=== PATIENT | female | born 1985 | race Caucasian/White ===

== ENCOUNTER 2021-03-23 04:50 | Emergency (ER) | payer MEDICAID, SELFPAY ==
[2021-03-23 04:58] VITALS: BP 141/88; PULSE 65; RESP 16; TEMP 36.6; O2SAT 100
[2021-03-23 05:35] LABS: Add Urine Microscopic? YES; Appearance Urine Cloudy (Clear); Bilirubin Urine Negative (Negative); Blood Urine Negative (Negative); Color Urine Yellow (Yellow); Glucose Urine UA Negative (Negative); Ketones Urine Negative (Negative); Leukocyte Esterase Ur 3+ LEU/UL (Negative); Nitrate Urine Negative (Negative); Protein Urine Negative (Negative); Specific Grav Ur 1.018 (1.001-1.035); Squamous Epithelial Cell Urine Few /hpf (Few); Urobilinogen Urine Negative mg/dL (<2.0)
--- NOTE | 2021-03-23 05:46 | ED.GENADULT ---
HPI - General Adult General Chief complaint: Urogenital-Female Stated complaint: burning with urination-pain Time Seen by Provider: 03/23/21 05:00 History of Present Illness HPI narrative: Patient 35-year-old female presents emergency department with chief complaint of dysuria. The patient reports that this evening she woke up and has had burning with urination. Patient states that a little bit of pressure in her back reports that she had no vaginal bleeding or vaginal discharge. Patient reports her last period was last month. The patient does report that she has been trying to get . Related Data Allergies Allergy/AdvReac Type Severity Reaction Status Date / Time No Known Allergies Allergy Verified 03/23/21 05:06 Review of Systems Review of Systems: Narrative: A 10 system review of systems was completed on the patient and is negative except for what is stated in the HPI. Nursing and ancillary documentation was reviewed. Exam Narrative: Exam Narrative: GENERAL: Well-appearing, well-nourished, and in no acute distress. HEAD: Normocephalic, atraumatic. EYES: PERRLA and EOMI. ENT: Nares clear, no rhinorrhea or epistaxis. Mucous membranes moist. NECK: Supple. CHEST: Clear to auscultation. No respiratory distress. HEART: Regular rate and rhythm. No murmur heard. Normal peripheral pulses. ABDOMEN: Soft, nontender, nondistended, normal active bowel sounds. EXTREMITIES: Normal range of motion. No edema. SKIN: Warm, dry, no rash. NEURO: No focal deficits. Alert and oriented x3. PSYCH: Normal mood and affect. Course Vital Signs Vital signs: Vital Signs Temperature 36.6 C 03/23/21 04:58 Pulse Rate 65 03/23/21 04:58 Respiratory Rate 16 03/23/21 04:58 Blood Pressure 141/88 H 03/23/21 04:58 Pulse Oximetry 100 03/23/21 04:58 Temperature 36.6 C 03/23/21 04:58 Pulse Rate 65 03/23/21 04:58 Respiratory Rate 16 03/23/21 04:58 Blood Pressure 141/88 H 03/23/21 04:58 Pulse Oximetry 100 03/23/21 04:58 Medical Decision Making Vital Signs Vital Signs: Vital Signs Temperature 36.6 C 03/23/21 04:58 Pulse Rate 65 03/23/21 04:58 Respiratory Rate 16 03/23/21 04:58 Blood Pressure 141/88 H 03/23/21 04:58 Pulse Oximetry 100 03/23/21 04:58 Temperature 36.6 C 03/23/21 04:58 Pulse Rate 65 03/23/21 04:58 Respiratory Rate 16 03/23/21 04:58 Blood Pressure 141/88 H 03/23/21 04:58 Pulse Oximetry 100 03/23/21 04:58 Lab Data Labs: Lab Results 03/23/21 Range/Units 04:58 Urine Color Yellow (Yellow) Urine Appearance Cloudy H (Clear) Urine pH 6.0 (5.0-9.0) Ur Specific [place] 1.018 (1.001-1.035) Urine Protein Negative (Negative) mg/dL Urine Glucose (UA) Negative (Negative) mg/dL Urine Ketones Negative (Negative) mg/dL Ur Blood (Man) Negative (Negative) Urine Nitrate Negative (Negative) Urine Bilirubin Negative (Negative) Urine Urobilinogen Negative (<2.0) mg/dL Leukocyte Esterase Rfl 3+ H (Negative) GISSELLE/UL Urine RBC 6-10 H (0-2) /hpf Urine WBC 4-6 H /hpf Ur Squamous Epith Cells Few (Few) /hpf UCG Bedside Result Positive Reference Range: Negative Urine Characteristics Clear,Cloudy Discharge Plan Discharge Clinical Impression: UTI (urinary tract infection) Qualifiers: Urinary tract infection type: site unspecified Hematuria presence: without hematuria Qualified Code(s): N39.0 - Urinary tract infection, site not specified Qualifiers: Weeks of gestation: unspecified Qualified Code(s): Z34.90 - Encounter for supervision of normal , unspecified, unspecified trimester Patient Disposition: Home, Self-Care Condition: Stable Instructions: Antibiotic Form, (ED), Urinary Tract Infection in Women (ED) Prescriptions: New nitrofurantoin monohyd/m-cryst [
== END 2021-03-23 05:58 | disposition home or self-care (01) ==
PROVIDERS: Emergency Provider Emergency Medicine
DX: O23.40 Unspecified infection of urinary tract in pregnancy, unspecified trimester (principal)
CPT/HCPCS: 81001; 81025; 99283

== ENCOUNTER 2021-08-01 19:11 | Emergency (ER) | payer OTHER, SELFPAY ==
[2021-08-01 19:29] VITALS: BP 142/80; PULSE 80; RESP 16; TEMP 36.4; O2SAT 100
--- NOTE | 2021-08-01 21:59 | PC.NURSE ---
called pt to room with no answer x2
== END 2021-08-02 04:23 | disposition left against medical advice (07) ==
DX: M25.562 Pain in left knee (principal)
CPT/HCPCS: 99199

== ENCOUNTER 2021-08-26 18:00 | Observation (INO) | payer OTHER, SELFPAY ==
[2021-08-26 18:08] VITALS: BP 141/83; PULSE 75; RESP 16; TEMP 35.9; O2SAT 100
--- NOTE | 2021-08-26 18:31 | ED.FALL ---
HPI - Fall General Chief Complaint: Fall Stated Complaint: 29 wks , fall Time Seen by Provider: 08/26/21 18:20 Source: patient Mode of arrival: ambulatory Limitations: no limitations History of Present Illness HPI Narrative: This is a 35 year old , 29 weeks , that presents to the ER for a ground level fall today. Reports she slipped and fell and landed in the splits. Denies hitting her head or loss of consciousness. Denies any certain injuries after the fall. She has felt baby move. Her OB is Dr. Bhandari. Denies pelvic cramping or vaginal bleeding. Related Data Home Medications Medication Instructions Recorded Confirmed vit 14-iron fum-folic tablet 08/26/21 [ Multivit with Iron] Allergies Allergy/AdvReac Type Severity Reaction Status Date / Time No Known Allergies Allergy Verified 08/26/21 18:20 Review of Systems Review of Systems: CONSTITUTIONAL: Denies fever GASTROINTESTINAL: Denies abdominal pain MUSCULOSKELETAL: Reports myalgia. All systems reviewed & are unremarkable except as noted in HPI and below PMFSH Past Medical History Medical History (Updated 08/26/21 @ 19:08 by Justina Campbell PA-C) No active medical problems Social History Social History (Updated 08/26/21 @ 18:40 by Justina Campbell PA-C) Substance use: never Exam Narrative: GENERAL: Well-appearing, well-nourished, and in no acute distress. HEAD: Normocephalic, atraumatic. EYES: EOMI. CHEST: Clear to auscultation. No respiratory distress. No wheezes rales or rhonchi HEART: Regular rate and rhythm. No murmur heard. Normal peripheral pulses. ABDOMEN: Soft, nontender, nondistended, normal active bowel sounds. EXTREMITIES: Normal range of motion. No edema. SKIN: Warm, dry, no rash. NEURO: No focal deficits. Alert and oriented x3. PSYCH: Normal mood and affect Course Vital Signs Vital signs: Vital Signs Temperature 96.6 F L 08/26/21 18:08 Pulse Rate 75 08/26/21 18:08 Respiratory Rate 16 08/26/21 18:08 Blood Pressure 141/83 H 08/26/21 18:08 Pulse Oximetry 100 08/26/21 18:08 Temperature 96.6 F L 08/26/21 18:08 Pulse Rate 75 10/15/21 18:08 Respiratory Rate 16 08/26/21 18:08 Blood Pressure 141/83 H 08/26/21 18:08 Pulse Oximetry 100 08/26/21 18:08 Procedures Other Procedure Procedure 1: Other Procedure: Bedside ultrasound performed which did show good movement and appropriate cardiac activity MDM - Fall MDM Narrative Medical decision making narrative: Patient presents to the emergency department after a ground-level fall today. Patient slipped and fell. She is 29 weeks . Her OB is Dr. Bhandari. Denies any certain injury after the fall. No injury to the abdomen. She is feeling the baby move. Baby noted to have heart tones in the 140s. Bedside ultrasound performed which did show good movement. Spoke with Dr. Tomas about patient work-up who would like patient to be sent to OB for further monitoring with nonstress test Critical Care Time Critical Care Time Critical Care Time: No Discharge Plan Discharge Clinical Impression: Fall from ground level, Third trimester Patient Disposition: Still a Patient Condition: Stable Prescriptions: No Action Multivit with Iron 29 mg iron- 1 mg Tablet,Chewable RF: 0 Follow-up/Referrals: Rusty Bhandari MD [Primary Care Provider] -
--- NOTE | 2021-08-26 19:08 | PC.NURSE ---
Pt being moved to OB at this time. Pt taken to OB in wheelchair by RN. Upright and alert. VSS.
[2021-08-26 19:31] VITALS: BP 122/77; PULSE 72
[2021-08-26 20:00] VITALS: BMI 40.3
--- NOTE | 2021-08-26 20:01 | OBADM ---
This patient, Annabelle Rodriguez, admitted to the OB room OB Post 117 for observation. Patient/family oriented to hospital policies and general routines including ID bracelet, bed and alarms, visiting hours, pain management, procedures, bathroom and other care routines, personal items, smoking policy, room service/diet, and visiting hours. Patient/Family are encouraged to report perceived risks to care and to ask questions if they do not understand what they are told or what they should do.
--- NOTE | 2021-09-02 07:43 | PM.OBTRLD ---
OB - Triage/Final Diagnosis Visit Information Comments/Additional reasons for admission: I have assessed the risk for this patient, Annabelle Rodriguez, and determined that she would benefit from observation care. Final Diagnosis (1) Fall from ground level: Code(s): W18.30XA - Fall on same level, unspecified, initial encounter Status: Acute (2) Third trimester : Code(s): Z34.93 - Encounter for supervision of normal , unspecified, third trimester Status: Acute
== END 2021-08-26 20:20 | disposition home or self-care (01) ==
LOC: ANHED 19:12 → ANHOBPP 19:33
PROVIDERS: Admitting Provider Obstetrics & Gynecology; Emergency Provider Emergency Medicine; PCP Obstetrics & Gynecology; Visit Provider Obstetrics & Gynecology
DX: O26.893 Other specified pregnancy related conditions, third trimester (principal); W19.XXXA Unspecified fall, initial encounter; Z3A.29 29 weeks gestation of pregnancy
CPT/HCPCS: 59025; 99285; G0378

== ENCOUNTER 2021-10-07 11:32 | Outpatient (RCR) | payer OTHER, SELFPAY ==
[2021-10-07 12:01] VITALS: BP 134/73; PULSE 79
== END 2021-11-24 09:40 | disposition home or self-care (01) ==
LOC: ANHOBOP 11:32
PROVIDERS: Visit Provider Obstetrics & Gynecology
DX: O24.419 Gestational diabetes mellitus in pregnancy, unspecified control (principal); Z3A.35 35 weeks gestation of pregnancy
CPT/HCPCS: 59025

== ENCOUNTER 2021-10-20 16:10 | Inpatient (IN) | payer OTHER, SELFPAY ==
[2021-10-20] VITALS (13 sets, daily range): BP systolic 112–139; BP diastolic 63–93; PULSE 65–76; RESP 20; TEMP 36.6–37.2
--- NOTE | 2021-10-20 16:45 | LDADM ---
This patient, Annabelle Rodriguez, was admitted to Labor/Delivery/Recovery 107 on 10/20/21 at 16:10. Plans for labor, pain management and were discussed with patient. Patient/family oriented to hospital policies and general routines including ID bracelet, bed and alarms, visiting hours, pain management, procedures, bathroom and other care routines, personal items, smoking policy, room service/diet and guest tray routines, security routines, and visiting hours. Patient/Family are encouraged to report perceived risks to care and to ask questions if they do not understand what they are told or what they should do. See OBIX for further documentation.
[2021-10-20 16:48] LABS: Basophils Percent Auto 0.3 % (0.2-1.2); Eosinophils Absolute Auto 0.1 K/mm3 (0-0.3); Eosinophils Percent Auto 0.6 % (0-4.4); Hematocrit 35.4 % (37.0-47.0); Hemoglobin 11.8 g/dL (12.0-15.0); Immature Granulocyte Absolute 0.02 K/mm3 (0.00-0.031); Immature Granulocyte Percent A 0.2 % (0-0.5); Lymphocytes Absolute Auto 1.75 K/mm3 (0.9-3.2); Lymphocytes Percent Auto 19.7 % (18.3-44.2); Mean Corpuscular HGB Conc 33.3 g/dl (32-36); Mean Corpuscular Hemoglobin 30.2 pg (26-34); Mean Corpuscular Volume 90.5 fl (80-100); Mean Platelet Volume 11.9 fl (7.4-10.4); Monocytes Absolute Auto 0.7 K/mm3 (0.1-0.6); Monocytes Percent Auto 8.1 % (2.6-8.5); Neutrophils Absolute Auto 6.3 K/mm3 (1.3-6.7); Neutrophils Percent Auto 71.1 % (45.5-73.1); Platelet Count Result 186 k/mm3 (150-375); Red Blood Count 3.91 M/mm3 (4.2-5.4); Red Cell Distribution Width 13.4 % (11.5-14.5); White Blood Count 8.9 K/mm3 (4.5-10.0)
[2021-10-20] MEDS: DINOPROSTONE 10 MG VAG INSERT VAGINAL (16:59)
[2021-10-20 17:01] LABS: Alanine Aminotransferase 13 U/L (4-35); Albumin Level 3.5 g/dL (3.5-5.1); Alkaline Phosphatase 155 U/L (38-126); Anion Gap 5 mmol/L (8-16); Aspartate Amino Transferase 20 U/L (14-36); Bilirubin,Total 0.3 mg/dL (0.2-1.3); Blood Urea Nitrogen 8 mg/dL (7-17); Carbon Dioxide 22 mmol/L (22-30); Chloride 103 mmol/L (98-107); Estimated Glomerular Filt Rate > 60; Glucose 94 mg/dL (65-110); Potassium 3.9 mmol/L (3.4-5.0); Sodium 130 mmol/L (137-145); Uric Acid 4.2 mg/dL (2.5-7.5)
[2021-10-20 18:11] LABS: Amphetamine Screen Urine Negative (Negative); Barbiturate Screen Urine Negative (Negative); Benzodiazepines Screen Urine Negative (Negative); Cannabinoid Screen Urine Positive (Negative); Cocaine Screen Urine Negative (Negative); Methadone Screen Urine Negative (Negative); Opiate Screen Urine Negative (Negative); Phencyclidine Screen Urine Negative (Negative)
[2021-10-21] VITALS (264 sets, daily range): BP systolic 100–163; BP diastolic 46–112; PULSE 36–187; RESP 18; TEMP 36.2–37.3; O2SAT 94–100; BMI 41.5
[2021-10-21 00:15] LABS: Glucose Point of Care 82 mg/dl (65-105)
[2021-10-21 04:52] LABS: Glucose Point of Care 80 mg/dl (65-105)
[2021-10-21] MEDS: LACTATED RINGERS 1,000 ML 125 ML IV CONT (06:33)
[2021-10-21] MEDS: OXYTOCIN 30 UNITS/NS 500 ML 30 UNITS/500 ML BAG 6 UNITS IV CONT (06:34)
--- NOTE | 2021-10-21 07:28 | WPDOBADMIT ---
Obstetrics - Admit Note Admission Note: record reviewed. No pertinent additions to the history and/or any subsequent changes in the physical findings that are not consistent with the expected course of the were found. MIL for GHTN and GDMA-2, hx +THC in , SVE /-3 Additions to the history and/or subsequent changes in the physical findings follow. None.
[2021-10-21 08:36] LABS: Glucose Point of Care 85 mg/dl (65-105)
[2021-10-21] MEDS: LACTATED RINGERS 1,000 ML 999 ML IV CONT ×3 (09:46→22:21)
[2021-10-21] MEDS: ONDANSETRON INJ 4 MG/2 ML VIAL IV PUSH (09:50)
--- NOTE | 2021-10-21 10:26 | WPDANESEPP ---
Anes - Eval Pre Procedure Procedure: Labor Epidural Date/Time: 10/21/21 10:26 Surgeon: Elisabet Preop Diagnosis: Labor pain Pre Op Diagnosis: iol Patient Data Age: 36 Gender: F Height: Weight: Last Vital Signs Temp 36.6 C 10/21/21 07:30 Pulse 68 10/21/21 10:24 Resp 20 10/20/21 16:40 BP 124/65 10/21/21 10:24 Pulse Ox 100 10/21/21 10:23 Allergies Allergy/AdvReac Type Severity Reaction Status Date / Time No Known Allergies Allergy Verified 08/26/21 18:20 Home Medications Medication Instructions Recorded Confirmed Type PNV cmb#95-ferrous fumarate-FA 1 tablet PO DAILY 10/14/21 10/20/21 History [] insulin NPH and regular human 20 unit SUBCUT HS 10/14/21 10/20/21 History [Humulin 70/30 Insulin Pen] Laboratory Tests 10/20/21 10/20/21 10/20/21 16:38 16:38 16:38 WBC 8.9 K/mm3 K/mm3 (4.5-10.0) RBC 3.91 M/mm3 L M/mm3 (4.2-5.4) Hgb 11.8 g/dL L g/dL (12.0-15.0) Hct 35.4 % L % (37.0-47.0) MCV 90.5 fl fl (80-100) MCH 30.2 pg pg (26-34) MCHC 33.3 g/dl g/dl (32-36) RDW 13.4 % % (11.5-14.5) Plt Count 186 k/mm3 k/mm3 (150-375) MPV 11.9 fl H fl (7.4-10.4) Immature Gran % (Auto) 0.2 % % (0-0.5) Neut % (Auto) 71.1 % % (45.5-73.1) Lymph % (Auto) 19.7 % % (18.3-44.2) [place] % (Auto) 8.1 % % (2.6-8.5) Eos % (Auto) 0.6 % % (0-4.4) Baso % (Auto) 0.3 % % (0.2-1.2) Lymph # (Auto) 1.75 K/mm3 K/mm3 (0.9-3.2) [place] # (Auto) 0.7 K/mm3 H K/mm3 (0.1-0.6) Eos # (Auto) 0.1 K/mm3 K/mm3 (0-0.3) Baso # (Auto) 0.0 K/mm3 K/mm3 (0.0-0.1) Abs Immat Gran (auto) 0.02 K/mm3 K/mm3 (0.00-0.031) Absolute Neuts (auto) 6.3 K/mm3 K/mm3 (1.3-6.7) Absolute Nucleated RBC 0.0 K/mm3 K/mm3 (0.0-0.012) Nucleated RBC % 0.0 % % (0.0-0.2) Sodium Potassium Chloride Carbon Dioxide Anion Gap BUN Creatinine Estim Creat Clear Calc Estimated GFR Glucose POC Capillary Glucose Uric Acid Cancelled Calcium Total Bilirubin AST ALT Alkaline Phosphatase Total Protein Albumin Urine Opiates Screen Urine Methadone Screen Ur Barbiturates Screen Ur Phencyclidine Scrn Ur Amphetamine Screen U Benzodiazepines Scrn Urine Cocaine Screen U Cannabinoids Screen RPR Pending Blood Type Antibody Screen 10/20/21 10/20/21 10/20/21 16:38 16:38 17:27 WBC RBC Hgb Hct MCV MCH MCHC RDW Plt Count MPV Immature Gran % (Auto) Neut % (Auto) Lymph % (Auto) [place] % (Auto) Eos % (Auto) Baso % (Auto) Lymph # (Auto) [place] # (Auto) Eos # (Auto) Baso # (Auto) Abs Immat Gran (auto) Absolute Neuts (auto) Absolute Nucleated RBC Nucleated RBC % Sodium 130 mmol/L L mmol/L (137-145) Potassium 3.9 mmol/L mmol/L (3.4-5.0) Chloride 103 mmol/L mmol/L (98-107) Carbon Dioxide 22 mmol/L mmol/L (22-30) Anion Gap 5 mmol/L L mmol/L (8-16) BUN 8 mg/dL mg/dL (7-17) Creatinine 0.60 mg/dL L mg/dL (0.7-1.0) Estim Creat Clear Calc Not Reportable Estimated GFR > 60 (59 - ) Glucose 94 mg/dL mg/dL (65-110) POC Capillary Glucose Uri
[2021-10-21 12:37] LABS: Rapid Plasma Reagin Non-Reactive (NonReactive)
[2021-10-21 12:58] LABS: Glucose Point of Care 74 mg/dl (65-105)
[2021-10-21 16:45] LABS: Glucose Point of Care 65 mg/dl (65-105)
[2021-10-21 20:30] LABS: Glucose Point of Care 56 mg/dl (65-105)
[2021-10-21 21:04] LABS: Glucose Point of Care 74 mg/dl (65-105)
[2021-10-22] VITALS (129 sets, daily range): BP systolic 89–152; BP diastolic 46–115; PULSE 57–236; RESP 18–20; TEMP 36.3–37.4; O2SAT 89–100
[2021-10-22 01:30] LABS: Glucose Point of Care 77 mg/dl (65-105)
[2021-10-22] MEDS: ONDANSETRON INJ 4 MG/2 ML VIAL IV PUSH (02:11)
[2021-10-22 04:57] LABS: Glucose Point of Care 91 mg/dl (65-105)
[2021-10-22] MEDS: AMPICILLIN 2 GM/NS 100 ML 2 GM/100 ML BAG IVPB (05:45)
[2021-10-22] MEDS: OXYTOCIN 30 UNITS/NS 500 ML 30 UNITS/500 ML BAG 6 UNITS IV CONT (05:51)
--- NOTE | 2021-10-22 07:41 | PM.OBPRVD ---
OB - Delivery Note Procedure Delivery date: 10/22/21 Procedure: events: Gestational Diabetes and Induced HTN Intrapartal events: None Induction method: per cervidil protocol Delivery monitor: external FHT, external uterine, internal FHT and internal uterine Route of delivery: Episiotomy description: None Laceration Description: None Quantitative Blood Loss (ml): 174 Anesthesia type: Epidural [place] Baby Date of : 10/22/21 Time of : 07:15 Weeks of gestation at delivery: 37 Infant gender: Male Weight (pounds): 6 Weight (ounces): 5 presentation: vertex position: Right Occiput Anterior Placenta delivery description: Spontaneous Narrative: Mother and baby in stable condition. Cord gasses collected and handed off to staff.
[2021-10-22] MEDS: OXYTOCIN 30 UNITS/NS 500 ML 30 UNITS/500 ML BAG 125 UNITS IV CONT (08:00)
[2021-10-22] MEDS: IBUPROFEN 600 MG TABLET PO ×2 (09:53→19:05)
--- NOTE | 2021-10-22 11:02 | OBPPTRN ---
Patient transferred to post room # 285 via wheelchair. Support person present. Oriented to unit, room, information board, rooming in, admission packet and security measures. Patient verbalizes understanding.
[2021-10-23 00:35] VITALS: BP 103/64; PULSE 59; RESP 18; TEMP 36.1
[2021-10-23 04:10] VITALS: BP 125/85; PULSE 58; RESP 18; TEMP 36.2
[2021-10-23 04:48] LABS: Hematocrit 30.2 % (37.0-47.0); Hemoglobin 10.2 g/dL (12.0-15.0)
[2021-10-23 08:20] VITALS: BP 107/66; PULSE 57; RESP 18; TEMP 36.1
[2021-10-23 08:29] LABS: Glucose Point of Care 75 mg/dl (65-105)
--- NOTE | 2021-10-23 10:06 | PM.OBPNVD ---
OB - PN: Subj Subjective Date/time seen: 10/23/21 10:06 Patient comments: no complaints baby status: doing well OB - PN: Obj Data Labs CBC & Chem 7: 10/23/21 04:11 10/20/21 16:38 Labs: Laboratory Results - last 24 hr 10/23/21 10/23/21 04:11 08:26 Hgb 10.2 L Hct 30.2 L POC Capillary Glucose 75 OB - PN A/P Plan day: 1 Plan: routine care Time Spent With Patient Time: Total time spent is greater than 50% in coordination of care (as documented) at patient's floor/unit and/or counseling patient: Time with patient: less than 15 minutes Review of Systems Review of Systems: All systems reviewed & are unremarkable except as noted in HPI and below Exam Narrative: Fundus firm and vaginal flow controlled. No lower ext redness, warmth, or edema. Negative homans. Const: General: comfortable Chest: Breast/axilla inspection: normal inspection of the breasts Resp: Effort & Inspection: normal respiratory effort Cardio: Rate: regular rate GI: GI Palp: Yes Soft to palpation Psych: Appearance: grossly normal Affect: normal affect Attitude: cooperative Thought content: Yes Normal thought content present Judgement: Good judgement present (Psych)
[2021-10-23] MEDS: IBUPROFEN 600 MG TABLET PO ×2 (10:29→16:06)
[2021-10-23] MEDS: MULTIVIT/MIN/PREN/FOL AC/IRON TABLET 1 TAB PO (10:29)
[2021-10-23 19:00] VITALS: BP 118/85; PULSE 65; RESP 18; TEMP 36.2
--- NOTE | 2021-10-23 20:32 | PC.NURSE ---
10/23/2021 at 1930 Patient viewed the discharge video Mother & Baby Care, The First Two Weeks . Patient was given the opportunity and encouraged to ask questions. Patient verbalized understanding of information shared and has been given the mother/baby guide for home reference.
--- NOTE | 2021-10-23 20:33 | PC.NURSE ---
10/23/2021 at 1850 as I entered mother's room I noticed one of the wall light sconces behind the patient's bed was not lit. I had him (the patient's significant other) pull the bulb out because it was too bright. I cautioned the patient that I don't want either of them getting hurt so please do not try and replace the bulb before they leave tomorrow...I continued and said that we will have maintenance replace the bulb. The patient and her significant other states understanding.
[2021-10-24] MEDS: IBUPROFEN 600 MG TABLET PO ×2 (00:26→07:40)
[2021-10-24] MEDS: MULTIVIT/MIN/PREN/FOL AC/IRON TABLET 1 TAB PO (07:40)
[2021-10-24 07:50] VITALS: BP 142/88; PULSE 64; RESP 18; TEMP 36.8; O2SAT 100
--- NOTE | 2021-10-24 08:03 | P.PNOB_ITS ---
OB - PN: Subj Subjective Date/time seen: 10/24/21 08:03 Patient comments: no complaints baby status: doing well OB - PN: Obj Data Labs CBC & Chem 7: 10/23/21 04:11 10/20/21 16:38 Labs: Laboratory Results - last 24 hr 10/23/21 08:26 POC Capillary Glucose 75 OB - PN A/P Plan day: 2 Plan: routine care and discharge home (F/U in 1 week for bp check) Time Spent With Patient Time: Total time spent is greater than 50% in coordination of care (as documente d) at patient's floor/unit and/or counseling patient: Time with patient: less than 15 minutes Review of Systems Review of Systems: All systems reviewed & are unremarkable except as noted in HPI and below Exam Narrative: Fundus firm and vaginal flow controlled. No lower ext redness, warmth, or edema. Negative homans. Denies h/a, v/d or e/p. Reflexes normal. Const: General: comfortable Chest: Breast/axilla inspection: normal inspection of the breasts Resp: Effort & Inspection: normal respiratory effort Cardio: Rate: regular rate GI: GI Palp: Yes Soft to palpation Psych: Appearance: grossly normal Affect: normal affect Attitude: cooperative Thought content: Yes Normal thought content present Judgement: Good judgement present (Psych)
--- NOTE | 2021-10-24 08:04 | PM.OBDSVD ---
DS: Admitting Diagnosis Discharge Date 10/24/21 Admitting Diagnosis Induction of Labor OB - DS: Summary OB Procedures : None OB Procedures Intrapartum: Spontaneous Vag Delivery OB Procedures: : None Time Spent with Patient Time attestation: Total time spent providing and/or coordinating discharge services: DS: Data Data Completed and Pending Labs on day of discharge: Labs from last 24 hours 10/23/21 08:26 POC Capillary Glucose 75 Discharge Plan Discharge Attending physician on discharge: Bela Melendez Discharging Clinician: Bela Melendez Patient Disposition: Home, Self-Care Activity: pelvic rest Diet: as tolerated Patient Instructions: Antibiotic Form Stand Alone Forms: General Discharge Information Follow-up/Referrals: Bela Melendez, MARTINAM [Certified Nurse Film Recordist] - Discharge Medications: Continued PNV cmb#95-ferrous fumarate-FA [] 28 mg iron- 800 mcg Tablet 1 tablet PO DAILY RF: 0 Discontinued Humulin 70/30 Insulin Pen 100 unit/mL (70-30) Insulin Pen 20 unit SUBCUT HS RF: 0 Date of admission: 10/20/21 16:10 Primary Care Provider: PHYSICIAN,DINING SERVICES DIRECTOR Admitting Provider: Rusty Bhandari Attending physician on admission: Rusty Bhandari Condition: Stable
--- NOTE | 2021-10-24 13:58 | PC.NURSE ---
1220 - Consulted with patient, reviewed infant feeding cues, frequencies, duration of feedings, feeding elimination flow sheet, and signs of adequate intake. Mom had just pumped her breast prior to assistance. Re-enforced feeding plan of putting to breast to effectively feed, supplementing with pumped colostrum/formula, then pumping breast for 10-15 min. Demonstrated stimulation techniques to wake for feeding. Assisted with infant to breast with a nipple shield. Reviewed positioning and alignment, holding breast and asymmetrical latch on. Infant was able to latch correctly with nipple shield. nursed eagerly, with steady draws. Reviewed signs of a correct latch, effective nursing and suck swallow ratio. was able to maintain latch without discomfort to mother using the nipple shield. Nipple care reviewed. Instructed mother to call out for RN assistance if she is unable to latch infant for feeding or she has discomfort with nursing. Pt states she is going home today. Reviewed feeding plan, answered questions and mom verbalizes understanding of the number to call for OP assistance for or ICP. Instructed feeding [ attempts with nipple shield or without, supplementing and pumping] should be initiated three hours from start of last feeding or if feeding cues are noted before. Mother voiced understanding of information shared. Mother states she feels confident to continue feeding plan at home. Reviewed transition to breast milk, signs of adequate intake, and engorgement/relief. Instructed to call ICP if intake/output less than required. Reviewed community resources on the [facility] website and in the Mom/Baby guide. Information on outpatient services provided. Mother has no further questions at this time.
[2021-10-26 11:36] VITALS: BP 129/78; PULSE 63; RESP 20; TEMP 37; O2SAT 100
== END 2021-10-24 13:48 | disposition home or self-care (01) | DRG 560 ==
LOC: ANHLDR 16:15 → ANHOB2 10-22 11:18
PROVIDERS: Advanced Practice Midwife; Admitting Provider Obstetrics & Gynecology; Visit Provider Obstetrics & Gynecology
DX: O13.4 Gestational [pregnancy-induced] hypertension without significant proteinuria, complicating childbirth (principal); O24.429 Gestational diabetes mellitus in childbirth, unspecified control; O71.82 Other specified trauma to perineum and vulva; Z3A.37 37 weeks gestation of pregnancy; Z37.0 Single live birth
CPT/HCPCS: 36415; 80053; 80307; 82948; 84550; 85014; 85018; 85025; 86592; 86850; 86900; 86901; 88307; A9270; J0290; J2405; J2590; J2795; J7120

== ENCOUNTER 2024-02-13 11:23 | Emergency (ER) | payer OTHER, SELFPAY ==
--- NOTE | ~2024-02-13 | XR_ITS ---
XR foot LT min 3V DATE: 02/13/2024 12:12 INDICATION: Pain, particularly at the heel TECHNIQUE: 4 views of left foot COMPARISON: None FINDINGS: Prominent plantar calcaneal enthesopathy without associated erosive change or periostitis. No fracture, dislocation, periosteal reaction or bone destruction or severe joint space narrowing, er osive change. IMPRESSION: Prominent plantar calcaneal enthesopathy Reviewed, dictated and finalized at location B.
--- NOTE | ~2024-02-13 | XR_ITS ---
XR ankle LT min 3V DATE: 02/13/2024 12:12 INDICATION: Pain. No injury. TECHNIQUE: 4 views of left ankle COMPARISON: None FINDINGS: Prominent plantar calcaneal enthesopathy. No fracture or dislocation of the ankle or disruption of the ankle mortise. No periosteal reaction or bone destruction. IMPRESSION: Prominent plantar calcaneal enthesopathy Reviewed, dictated and finalized at location B.
[2024-02-13 11:23] VITALS: BP 144/88; PULSE 66; RESP 16; TEMP 36.6; O2SAT 100
[2024-02-13] MEDS: KETOROLAC 30 MG/ML VIAL (*BKC) IM (11:51)
--- NOTE | 2024-02-13 12:25 | ED.GENADULT ---
HPI - General Adult General Chief complaint: Extremity Injury, Lower Stated complaint: left foot pain Time Seen by Provider: 02/13/24 11:28 History of Present Illness HPI narrative: Annabelle Rodriguez is a 38 y/o female who presents with reports of having pain to her left ankle/ foot for about a week without any known injury. Slight swelling noted to the lateral left ankle pain noted to the medial part/ arch of foot Pain is worse with ambulation Related Data Home Medications Medication Instructions Recorded Confirmed vit no.95-ferrous 1 tablet PO DAILY 10/14/21 10/20/21 fumarate 28 mg-folic acid 800 mcg tablet () Allergies Allergy/AdvReac Type Severity Reaction Status Date / Time No Known Allergies Allergy Verified 02/13/24 11:55 Review of Systems Review of Systems: All systems reviewed & are unremarkable except as noted in HPI and below PMFSH Past Medical History Medical History No active medical problems Family History Family History Father Diabetes mellitus Grandparent Diabetes mellitus Mother Congestive heart failure Social History Social History Smoking status: Former smoker Substance use: current Spiritual care concerns: No Exam Narrative: GENERAL: Well-appearing, well-nourished, and in no acute distress. HEAD: Normocephalic, atraumatic. EYES: PERRLA and EOMI. ENT: Nares clear, no rhinorrhea or epistaxis. Mucous membranes moist. Oropharynx without tonsillar hypertrophy exudate or other lesions. Bilateral TMs pearly celestin non bulging NECK: Supple. No adenopathy or masses. No carotid bruits or JVD CHEST: Clear to auscultation. No respiratory distress. No wheezes rales or rhonchi HEART: Regular rate and rhythm. No murmur heard. Normal peripheral pulses. ABDOMEN: Soft, nontender, nondistended, normal active bowel sounds. EXTREMITIES: Normal range of motion. slight swelling to the lateral ankle pain to the medial side of foot and arch SKIN: Warm, dry, no rash. NEURO: No focal deficits. Alert and oriented x3. PSYCH: Normal mood and affect. Course Vital Signs Vital signs: Vital Signs Temperature 36.6 C 04/03/24 11:23 Pulse Rate 66 02/13/24 11:23 Respiratory Rate 16 02/13/24 11:23 Blood Pressure 144/88 H 02/13/24 11:23 Pulse Oximetry 100 02/13/24 11:23 Temperature 36.6 C 02/13/24 11:23 Pulse Rate 66 02/13/24 11:23 Respiratory Rate 16 02/13/24 11:23 Blood Pressure 144/88 H 02/13/24 11:23 Pulse Oximetry 100 02/13/24 11:23 Medical Decision Making MDM Narrative Medical decision making narrative: 38 y/o with left foot pain for 1 week without known injury or trauma X ray is negative for acute findings showing Prominent plantar calcaneal enthesopathy? Pain is likely related to plantar fasciitis will d/c home Encouraged Rest/ Naiads/ heal arch support while walking Close follow up with PCP return precaution provide. Medical Records Medical records reviewed: Yes I reviewed the external patient's medical records. Vital Signs Vital Signs: Vital Signs Temperature 36.6 C 02/13/24 11:23 Pulse Rate 66 02/13/24 11:23 Respiratory Rate 16 02/13/24 11:23 Blood Pressure 144/88 H 02/13/24 11:23 Pulse Oximetry 100 02/13/24 11:23 Temperature 36.6 C 02/13/24 11:23 Pulse Rate 66 02/13/24 11:23 Respiratory Rate 16 02/13/24 11:23 Blood Pressure 144/88 H 02/13/24 11:23 Pulse Oximetry 100 02/13/24 11:23 Vitals reviewed by me. Imaging Data My impression: Impressions Foot X-Ray 02/13/24 12:16 IMPRESSION: Prominent plantar calcaneal enthesopathy Ankle X-Ray 02/13/24 12:17 IMPRESSION: Prominent plantar calcaneal enthesopathy Discharge Plan Discharge Clinical Impression: Master
== END 2024-02-13 13:00 | disposition home or self-care (01) ==
PROVIDERS: Emergency Provider Nurse Practitioner Family
DX: M72.2 Plantar fascial fibromatosis (principal); M77.32 Calcaneal spur, left foot; Z87.891 Personal history of nicotine dependence
CPT/HCPCS: 73610; 73630; 96372; 99283; J1885

== ENCOUNTER 2025-07-23 04:57 | Inpatient (IN) | payer MEDICAID, SELFPAY ==
[2025-07-23] VITALS (128 sets, daily range): BP systolic 107–163; BP diastolic 60–114; PULSE 31–105; RESP 16–17; TEMP 36.3–37.1; O2SAT 78–100; BMI 43.8
--- NOTE | 2025-07-23 05:36 | LDADM ---
This patient, Annabelle Rodriguez, was admitted to Labor/Delivery/Recovery 103 on 07/23/25 at 04:57. Plans for labor, pain management and were discussed with patient. Patient/family oriented to hospital policies and general routines including ID bracelet, bed and alarms, visiting hours, pain management, procedures, bathroom and other care routines, personal items, smoking policy, room service/diet and guest tray routines, security routines, and visiting hours. Patient/Family are encouraged to report perceived risks to care and to ask questions if they do not understand what they are told or what they should do. See OBIX for further documentation.
[2025-07-23 05:46] LABS: Hematocrit 32.5 % (37.0-47.0); Hemoglobin 10.7 g/dL (12.0-15.0); Immature Granulocyte Percent A 0.3 % (0-0.5); Lymphocytes Absolute Auto 2.84 K/mm3 (0.9-3.2); Mean Corpuscular HGB Conc 32.9 g/dl (32-36); Mean Corpuscular Hemoglobin 28.7 pg (26-34); Mean Corpuscular Volume 87.1 fl (80-100); Nucleated Red Blood Cells Absolute Auto 0.000 K/mm3 (0.0-0.012); Nucleated Red Blood Cells Perc 0.0 % (0.0-0.2); Platelet Count Result 168 k/mm3 (150-375); Red Blood Count 3.73 M/mm3 (4.2-5.4); White Blood Count 8.6 K/mm3 (4.5-10.0)
--- NOTE | 2025-07-23 06:14 | P.PNAN_ITS ---
Anes - Eval Pre Procedure Procedure: Labor epidural Date/Time: 07/23/25 06:14 Surgeon: Elisabet Preop Diagnosis: Abdominal pain with contractions Pre Op Diagnosis: IOL Patient Data Age: 39 Gender: F Height: 1.7 m Weight: 127 kg Last Vital Signs Pulse 73 07/23/25 06:01 BP 126/87 07/23/25 06:01 Pulse Ox 99 07/23/25 06:02 Allergies Allergy/AdvReac Type Severity Reaction Status Date / Time No Known Allergies Allergy Verified 07/23/25 05:33 Home Medications ?Medication ?Instructions ?Recorded ?Confirmed ?Type vit no.95-ferrous 1 tablet PO DAILY 10/14/21 07/23/25 History fumarate 28 mg-folic acid 800 mcg tablet () Laboratory Tests 07/23/25 05:40 WBC 8.6 K/mm3 (4.5-10.0) RBC 3.73 L M/mm3 (4.2-5.4) Hgb 10.7 L g/dL (12.0-15.0) Hct 32.5 L % (37.0-47.0) MCV 87.1 fl (80-100) MCH 28.7 pg (26-34) MCHC 32.9 g/dl (32-36) RDW 13.7 % (11.5-14.5) Plt Count 168 k/mm3 (150-375) MPV 12.0 H fl (7.4-10.4) Immature Gran % (Auto) 0.3 % (0-0.5) Neut % (Auto) 56.3 % (45.5-73.1) Lymph % (Auto) 33.0 % (18.3-44.2) [place] % (Auto) 9.0 H % (2.6-8.5) Eos % (Auto) 1.2 % (0-4.4) Baso % (Auto) 0.2 % (0.2-1.2) Lymph # (Auto) 2.84 K/mm3 (0.9-3.2) [place] # (Auto) 0.8 H K/mm3 (0.1-0.6) Eos # (Auto) 0.1 K/mm3 (0-0.3) Baso # (Auto) 0.0 K/mm3 (0.0-0.1) Abs Immat Gran (auto) 0.03 K/mm3 (0.00-0.031) Absolute Neuts (auto) 4.8 K/mm3 (1.3-6.7) Absolute Nucleated RBC 0.000 K/mm3 (0.0-0.012) Nucleated RBC % 0.0 % (0.0-0.2) Blood Type Pending Antibody Screen Pending : gestational age HCG: positive Patient hx anesthesia problems: none Family hx anesthesia problems: none Results Review: All pre-operative results and documents have been reviewed as part of the pre- operative evaluation. COUNT INCLUDES [facility] Past Medical History Medical History History of smoking Morbid obesity Anxiety and depression STD (sexually transmitted disease) No active medical problems Family History Family History Father Diabetes mellitus Grandparent Diabetes mellitus Mother Congestive heart failure Social History Social History Smoking status: Former smoker Substance use: current Lack of Transportation: No Lack of Food: Never True Current Housing: I Have Housing Concerned About Future Housing: No Difficulty Paying Gas/Electric Bills: No Difficulty Paying for Meds: No Currently Unemployed: No Education: High School Diploma/GED Difficulty w/ Childcare or Family Care: YES Spiritual care concerns: No Exam Day of Procedure 07/23/25 06:14 Patient weight: morbidly obese
[2025-07-23 06:25] LABS: Syphilis IgG/IgM Antibody Non-Reactive (Nonreactive)
--- NOTE | 2025-07-23 07:45 | PM.OBPNVD ---
OB - PN: Subj Subjective Date/time seen: 07/23/25 1218 Interval history: FHR category 1 SVE 4/80/-2 IUPC placed OB - PN: Obj Data Labs 07/23/25 05:40 Labs: Laboratory Results - last 24 hr 07/23/25 07/23/25 05:40 06:38 WBC 8.6 RBC 3.73 L Hgb 10.7 L Hct 32.5 L MCV 87.1 MCH 28.7 MCHC 32.9 RDW 13.7 Plt Count 168 MPV 12.0 H Immature Gran % (Auto) 0.3 Neut % (Auto) 56.3 Lymph % (Auto) 33.0 [place] % (Auto) 9.0 H Eos % (Auto) 1.2 Baso % (Auto) 0.2 Lymph # (Auto) 2.84 [place] # (Auto) 0.8 H Eos # (Auto) 0.1 Baso # (Auto) 0.0 Abs Immat Gran (auto) 0.03 Absolute Neuts (auto) 4.8 Absolute Nucleated RBC 0.000 Nucleated RBC % 0.0 POC Capillary Glucose 92 Syphilis IgG/IgM Ab Non-reactive Blood Type O Positive Antibody Screen Negative OB - PN A/P Time Spent With Patient Time: Total time spent is greater than 50% in coordination of care (as documented) at patient's floor/unit and/or counseling patient:
[2025-07-23] MEDS: LACTATED RINGERS 1,000 ML 125 ML IV CONT ×2 (08:59→10:53)
[2025-07-23] MEDS: OXYTOCIN 30 UNITS/NS 500 ML 30 UNITS/500 ML BAG IV CONT (13:02)
--- NOTE | 2025-07-23 15:24 | PM.OBPRVD ---
OB - Vaginal Delivery Note Procedure Delivery date: 07/23/25 Events: Gestational Diabetes and Gestational Hypertension Induction method: AROM, Per Misoprostol Protocol and Per Pitocin Protocol Delivery monitor: External FHT and Internal Uterine Route of delivery: Laceration Description: None Specimen: No Quantitative Blood Loss (ml): 50 Anesthesia type: Epidural Disposition: Floor Baby Date of : 07/23/25 Time of : 15:08 Gestational Age by Date: 39 Infant gender: Male presentation: vertex position: Left Occiput Anterior Placenta delivery description: Spontaneous and Expressed Cord Vessel Description: 3 Vessels score one minute: 8 score five minutes: 9
[2025-07-23] MEDS: OXYTOCIN 30 UNITS/NS 500 ML 30 UNITS/500 ML BAG 125 UNITS IV CONT (15:43)
[2025-07-23] MEDS: WITCH HAZEL 40 PADS 1 PAD TOPICAL (18:55)
[2025-07-23] MEDS: BENZOCAINE 20% AER SPR (*SP) 56 GM CAN 1 SPRAY TOPICAL (18:55)
--- NOTE | 2025-07-23 19:06 | OBPPTRN ---
Patient transferred to post room #292 via wheelchair. Support person present. Oriented to unit, room, information board, rooming in, admission packet and security measures. Patient verbalizes understanding.
[2025-07-24 04:30] VITALS: BP 115/69; PULSE 59; RESP 16; TEMP 36.6; O2SAT 98
[2025-07-24 05:04] LABS: Hematocrit 31.4 % (37.0-47.0); Hemoglobin 10.3 g/dL (12.0-15.0)
[2025-07-24 07:15] VITALS: BP 132/82; PULSE 57; RESP 16; TEMP 36.7; O2SAT 98
--- NOTE | 2025-07-24 07:39 | P.PNOB_ITS ---
OB - PN: Subj Subjective Date/time seen: 07/24/25 07:39 Interval history: pp day 1 doing well plan d/c home OB - PN: Obj Data Labs 07/24/25 04:32 Labs: Laboratory Results - last 24 hr 07/23/25 07/24/25 10:52 04:32 Hgb 10.3 L Hct 31.4 L POC Capillary Glucose 92 OB - PN A/P Plan day: 1 Plan: routine care Time Spent With Patient Time: Total time spent is greater than 50% in coordination of care (as documented) at patient's floor/unit and/or counseling patient: Review of Systems 2 Review of Systems: All systems reviewed & are unremarkable except as noted in HPI and below Exam 2 Const: General: cooperative, healthy appearing and comfortable Chest: Chest palpation & inspection: normal inspection of the chest Cardio: Rate: regular rate GI: Other: soft
--- NOTE | 2025-07-24 10:10 | PC.NURSE ---
Met with patient regarding needs. She has decided to pump and bottle feed rather than put baby directly to breast. She would like to get a hospital pump and begin pumping today. She also needs a breast pump for home use and would like a [employer] pump. She was able to pump for her last baby for several weeks and she is content to do the same with this baby. Primary RN updated.
--- NOTE | 2025-07-24 11:45 | PC.NURSE ---
Breast pump provided due to [maternal request]. Patient has decided to pump and bottle feed. She is provided with a hospital pump to use while she is here. Instructions given on cleaning, care, usage, that there should be no pain, pumping schedule for milk production, collection, and storage of human milk. Patient was assessed for correct placement, flange size, to pump for adequate milk production every 3 hours (8 times in 24 hours) 1-2 times at night. She does not have her own pump yet so a [employer] insurance pump is provided for her to take home. A WIC referral was sent to the [place] office.?Mother voiced understanding of the education shared along with mom/baby guide for additional resource information. Reported to the Primary RN.
[2025-07-24 20:00] VITALS: BP 130/78; PULSE 64; RESP 16; TEMP 36.6; O2SAT 100
[2025-07-25 00:45] VITALS: BP 143/86; PULSE 55; RESP 16; TEMP 36.7; O2SAT 96
[2025-07-25 04:50] VITALS: BP 135/86; PULSE 52; RESP 14; TEMP 36.6; O2SAT 99
[2025-07-25 09:15] VITALS: BP 139/84; PULSE 55; RESP 18; TEMP 36.2; O2SAT 96
[2025-07-25] MEDS: IBUPROFEN 600 MG TABLET PO (09:25)
[2025-07-25] MEDS: DOCUSATE SODIUM 100 MG CAPSULE PO (09:25)
--- NOTE | 2025-07-25 13:40 | P.PNOB_ITS ---
OB - PN: Subj Subjective Date/time seen: 07/25/25 13:40 Interval history: pp day 1 doing well plan d/c home Patient comments: no complaints, pain well controlled, incisional pain, tolerating diet and flatus present OB - PN: Obj Data Labs 07/24/25 04:32 OB - PN A/P Plan day: 1 Plan: routine care Comments: No problems, routine care Time Spent With Patient Time: Total time spent is greater than 50% in coordination of care (as documented) at patient's floor/unit and/or counseling patient: Exam 2 Const: General: comfortable, no acute distress and alert Resp: Effort & Inspection: normal respiratory effort Auscultation: no crackles, no rales and no rhonchi Cardio: Rate: regular rate Heart sounds: no click, no murmurs and no rubs GI: Inspection: non-distended GI Palp: No Tenderness to palpation present (GI) Auscultation: normal bowel sounds Other: Incision - CDI Extrem: General: normal to inspection, no pedal edema and no calf tenderness
--- NOTE | 2025-07-25 13:40 | P.DS_ITS ---
DS: Admitting Diagnosis Discharge Date 07/25/2025 Admitting Diagnosis Term DS: Discharge Diagnosis Discharge Diagnosis (1) Term delivered: Code(s): O80 - Encounter for full-term uncomplicated delivery Status: Acute OB - DS: Summary OB Procedures : None OB Procedures Intrapartum: Spontaneous Vag Delivery OB Procedures: : None Peripartum Data Laceration Description: None Time Spent with Patient Time attestation: Total time spent providing and/or coordinating discharge services: Discharge Plan Discharge Consulting providers: Padmini Little Discharging Clinician: Henrique Bhandari Patient Disposition: Home Activity: pelvic rest Diet: regular Patient Instructions: Antibiotic Form Patient Language: Citizen Of [place] Stand Alone Forms: General Discharge Information Follow-up/Referrals: Henrique Bhandari MD [Physician, ENTRY DRIVER OPERATOR] Discharge Medications: Continued PNV no.95-ferrous fumarate-FA [] 28 mg iron- 800 mcg Tablet 1 tablet PO DAILY Date of admission: 07/23/25 04:57 Primary Care Provider: PHYSICIAN,ASSISTIVE TECHNOLOGY TRAINER Admitting Provider: Henrique Bhandari Attending physician on admission: Henrique Bhandari Condition: Stable
[2025-07-28 08:49] VITALS: BP 154/87; PULSE 55; RESP 20; TEMP 36.7; O2SAT 100
== END 2025-07-25 15:20 | disposition home or self-care (01) | DRG 560 ==
LOC: ANHLDR 05:01 → ANHOB2 19:08
PROVIDERS: Advanced Practice Midwife; Admitting Provider Obstetrics & Gynecology; Visit Provider Obstetrics & Gynecology
DX: O24.429 Gestational diabetes mellitus in childbirth, unspecified control (principal); Z37.0 Single live birth; Z3A.37 37 weeks gestation of pregnancy; O16.4 Unspecified maternal hypertension, complicating childbirth; E66.01 Morbid (severe) obesity due to excess calories; O99.214 Obesity complicating childbirth
CPT/HCPCS: 36415; 82948; 85014; 85018; 85025; 86593; 86850; 86900; 86901; A9270; J2590; J2795; J7120

== ENCOUNTER 2025-07-28 09:28 | Outpatient (CLI) | payer OTHER, SELFPAY ==
[2025-07-28 09:41] VITALS: BP 149/94; PULSE 54
[2025-07-28 09:50] VITALS: BP 168/68; PULSE 43
[2025-07-28 09:58] LABS: Hematocrit 34.8 % (37.0-47.0); Hemoglobin 11.1 g/dL (12.0-15.0); Immature Granulocyte Percent A 0.4 % (0-0.5); Lymphocytes Absolute Auto 2.19 K/mm3 (0.9-3.2); Mean Corpuscular HGB Conc 31.9 g/dl (32-36); Mean Corpuscular Hemoglobin 28.3 pg (26-34); Mean Corpuscular Volume 88.8 fl (80-100); Nucleated Red Blood Cells Absolute Auto 0.000 K/mm3 (0.0-0.012); Nucleated Red Blood Cells Perc 0.0 % (0.0-0.2); Platelet Count Result 217 k/mm3 (150-375); Red Blood Count 3.92 M/mm3 (4.2-5.4); White Blood Count 7.7 K/mm3 (4.5-10.0)
[2025-07-28 10:01] VITALS: BP 153/86; PULSE 44
[2025-07-28 10:26] LABS: Alanine Aminotransferase 21 U/L (6-35); Albumin Level 3.6 g/dL (3.5-5.1); Alkaline Phosphatase 116 U/L (38-126); Anion Gap 5 mmol/L (4-12); Aspartate Amino Transferase 32 U/L (14-36); Bilirubin,Total 0.4 mg/dL (0.2-1.3); Blood Urea Nitrogen 7 mg/dL (7-17); Calcium 8.6 mg/dL (8.4-10.2); Carbon Dioxide 24 mmol/L (22-30); Chloride 108 mmol/L (98-107); Estimated Glomerular Filt Rate > 60; Glucose 92 mg/dL (65-110); Potassium 3.9 mmol/L (3.4-5.0); Sodium 137 mmol/L (137-145); Total Protein 6.7 g/dL (6.3-8.2); Uric Acid 4.7 mg/dL (2.5-7.5)
[2025-07-28 10:48] LABS: Add Urine Microscopic? YES; Appearance Urine Clear (Clear); Glucose Urine UA Negative (Negative); Leukocyte Esterase Ur 2+ LEU/UL (Negative); Nitrate Urine Negative (Negative); Non Pathogenic Casts 0-2; Specific Grav Ur 1.004 (1.001-1.035)
[2025-07-28 10:54] LABS: Total Protein Urine Random 21 mg/dL; Ur Ttl Prot Creatinine Ratio 2.47 mg/mg (0-0.20)
--- OUTSIDE RECORDS SUMMARY | 2025-07-28 10:55 | XMS_ITS | Clinical Summary ---
Author Organization [facility] Address [address] [place] [address] Phone Care Team Providers Care Keg Header Name Role Phone Jaylen Maldonado MD Primary Care Provider [phone] Allergies No known active allergies Medications drospirenone, contraceptive, (Slynd) tablet tablet Take 4 mg by mouth daily Active sertraline (ZOLOFT) 100 mg tablet Take 100 mg by mouth daily 11/27/2022 Active Active Problems Problem Noted Date Diagnosed Date Morbid obesity with BMI of 40.0-44.9, adult 07/13 Immunizations Immunization Administration Dates Next Due Influenza, Quadrivalent, Spl it, Preservative Free, Intramuscular 10/17/2021 Influenza, Unspecified 09/22/2022(Deferred: Maddie ent Refused) Tdap 10/17/2021 Surgical History Surgery Date Site/Laterality Comments LEG SURGERY 11/12/2012 - 11/11/2013 Right Family History Medical History Relation Name Comments Diabetes Father No Known Problems Mother Breast cancer Neg Hx Colon cancer Neg Hx Ovarian cancer Neg Hx Relation Name Status Comments Father Mother Social History Tobacco Use Types Packs/Day Years Used Date Smoking Tobacco: Former Cigarettes 0.5 11 2 010 - 2020 Smokeless Tobacco: Never Tobacco Cessation:Counseling Given: Not Answered PHQ-2 Answer Date Recorded PHQ-2 Total Score 0 01/08/2023 Personal Safety Answer Date Recorded Getting School Help Needed Not on file 11/08 Comments Unknown Sex and Gender Information Value Date Recorded Sex Assigned at Not on file Legal Sex Female 8:31 PM PACKAGING MANAGER Gender Identity Not on file Sexual Orientation Not on file Obstetrics History Last Filed Vital Signs Vital Sign Reading Time Taken Comments Blood Pressure 126/80 01/08/2023 2:03 PM PACKAGING MANAGER Pulse 56 01/08/2023 2:03 PM PACKAGING MANAGER Temperature 36.2 C (97.1 F) 01/08/2023 2:03 PM PACKAGING MANAGER Respiratory Rate 16 01/08/2023 2:03 PM PACKAGING MANAGER Oxygen Saturation 97% 01/08/2023 2:03 PM PACKAGING MANAGER Inhaled Oxygen Concentration - - Weight 122 kg (269 lb) 01/08/2023 2:03 PM PACKAGING MANAGER Height 169 cm (5' 6.54) 01/08/2023 2:03 PM PACKAGING MANAGER Body Mass Index 42.72 01/08/2023 2:03 PM PACKAGING MANAGER Plan of Treatment Health Maintenance Due Date Last Done Comments Cervical Cancer Screening 1987 Hepatitis C Screening 1987 Varicella Vaccines (1 of 2 - 13+ 2-dose series) 2000 Hepatitis B Screening 2005 Regular Well Visit/Exam 18-64 2005 HPV Vaccines (1 - 3-dose SCD M series) 2014 Depression Screening 01/08/2024 01/08/2023 Covid-19 Vaccine (3 - 2024-2 6 season) 2025 08/24/2021, 08/01/2021 Influenza Vaccine (#1) 2025 10/17/2021 DTaP/Tdap/Td Vaccine (2 - Td or Tdap) 10/17/2031 10/17/2021 Pneumococcal vaccine <65 Aged Out No longer eligible based on patient's age to complete this topic [place] [address] Care Teams Keg Header Relationship Specialty Start Date End Date Jaylen Maldonado MD PCP - General Family Medicine 01/08/23
[2025-07-28 11:07] VITALS: BP 159/82; PULSE 51
[2025-07-28 11:16] VITALS: BP 145/68; PULSE 47
== END 2025-07-28 12:35 | disposition home or self-care (01) ==
LOC: ANHOBOP 09:35 → ANHOBPP 09:36
PROVIDERS: Visit Provider Obstetrics & Gynecology
DX: O13.9 Gestational [pregnancy-induced] hypertension without significant proteinuria, unspecified trimester (principal); Z3A.00 Weeks of gestation of pregnancy not specified
CPT/HCPCS: 36415; 80053; 81001; 82570; 84156; 84550; 85025; 87086